=== PATIENT | male | born 1975 | race Caucasian/White ===

== ENCOUNTER 2021-04-27 19:14 | Emergency (ER) | payer OTHER ==
[~2021-04-27] VITALS: Ht 172.7 cm; Wt 81.6 kg
[~2021-04-27 19:14] MED LIST: METFORMIN HCL500 MG; RELAGESIC TABL1 EACH PO
[2021-04-27] MEDS ORDERED: GLIPIZIDE XL2.5 MG PO (19:30)
== END 2021-04-27 22:21 | disposition home or self-care (01) ==
LOC: ER 19:14
DX: R07.89 Other chest pain (principal); F41.9 Anxiety disorder, unspecified; R73.9 Hyperglycemia, unspecified